=== PATIENT | male | born 1970 | race Caucasian/White ===

== ENCOUNTER 2016-07-22 18:13 | Emergency (ER) ==
[2016-07-22 18:23] VITALS: BP 127/73
[2016-07-22] MEDS ORDERED: NORCO-5 PO ONE (19:03)
[2016-07-22] MEDS ORDERED: FLEXERIL PO ONE (19:03)
--- NOTE | 2016-07-22 19:05 | PROVIDER DOCUMENTATION ---
HPI-Musculoskeletal Pain/Inj - GENERAL Chief Complaint: Rib Injury Stated Complaint: POSS BROKEN RIB Time Seen by Provider: 07/22/16 18:53 Source: patient - HX OF PRESENT ILLNESS-MUSKULOSKELTAL Nature of Presenting Problem: 46 y/o WM c/o left anterior rib pain. Patient states 4 days ago he was pushing a mower, pushed as hard as he could, hand slipped and it hit him in the left anterior ribs. He was dx with pneumonia on Monday, taking Azithromycin, states the coughing is making the pain worse. Taking otc medications for pain relief without help. Pain aching, nonradiating, worse with coughing and deep breath. Review of Systems - Adult - REVIEW OF SYSTEMS - ADULT Constitutional: reports: no symptoms reported. denies: chills, fever, fatique Eyes: reports: no symptoms reported. denies: blurred vision, double vision, eye pain Ears, Nose, Mouth & Throat: reports: no symptoms reported. denies: ear pain, nose pain, throat pain Cardiovascular: reports: no symptoms reported. denies: chest pain, palpitations Respiratory: reports: see HPI, cough, other (chest wall pain). denies: shortness of breath, wheezing Gastrointestinal: reports: no symptoms reported. denies: abdominal pain, diarrhea, nausea, vomiting Genitourinary: reports: no symptoms reported. denies: dysuria, discharge, frequency, incontinence Musculoskeletal: reports: see HPI, muscle aches. denies: bone pain, back pain Integumentary: reports: no symptoms reported. denies: rash Neurological: reports: no symptoms reported. denies: dizziness/vertigo, headache/migraines Psychiatric: reports: no symptoms reported Endocrine: reports: no symptoms reported Hematologic/Lymphatic: reports: no symptoms reported Allergic/Immunologic: reports: no symptoms reported All Other Systems: Reviewed and Negative Past History - Adult - PAST MEDICAL HISTORY-ADULT Review of Records: reports: Old Records Reviewed, Nursing Assessment Review, Medications Reviewed Major Childhood Illnesses: reports: denies history Cardiovascular: reports: denies history Respiratory: reports: denies history Gastrointestinal: reports: other (diverticulitis) Genitourinary: reports: denies history Musculoskeletal: reports: denies history Neurological: reports: denies history Endocrine/Immune: reports: denies history Other Conditions: reports: denies history - PRIOR SURGERIES/PROCEDURES Surgical/Procedure History: reports: other (ear drum repair) - IMMUNIZATION STATUS Childhood Immunizations: See Nurse Assessment Flu Vaccine: See Nurse Assessment - FAMILY HISTORY Family History: reviewed, not pertinent - SOCIAL HISTORY Smoking: denies Substance Use: none/never Alcohol Use Frequency: never Physical Exam-Injury Related - Physical Exam-Injury Related Initial Vital Signs Reviewed: Yes General Appearance: appears well, alert, no apparent distress Eyes: PERRL/EOMI, pink conjunctivae Head, Ears, Nose, Mouth & Throat: normocephalic/atraumatic, moist mucous membranes Neck: normal inspection Respiratory: chest non-tender, lungs clear, normal breath sounds, no pleuratic chest pain, no respiratory distress, no accessory muscle use. negative: respiratory distress, decreased breath sounds, accessory muscle use, crackles, rales, rhonchi, stridor, wheezing Cardiovascular: normal peripheral pulses, regular rate, rhythm Chest/Breast: tenderness (left andterior chest wall tenderness around the nipple area. No bruising noted) Integumentary: normal color, warm/dry Neurologic: grossly normal, no motor/sensory deficits Psych/Mental Status: normal mood/affect, normal thought content, normal thought process, oriented x 3 - Glascow Coma Score Best Eye Response (Carl): (4) open spontaneously Best Verbal Response (Carl): (5) oriented Best Motor Response ([place]): (6) obeys commands Progress - PLAN OF CARE/RESULTS Progress/Plan/Lab Results: Vital Signs Temp Pulse Resp BP Pulse Ox 07/22/16 18:21 97.8 F 101 H 18 127/73 100 No Known Allergies Allergy (Verified 03/05/15 20:01) Hydrocodone/APAP 7.5 mg/325 mg [[place]-7.5] 1 each PO Q6H PRN PRN #10 tablet 11/04 Ibuprofen [Motrin] 800 mg PO Q8H PRN PRN #20 tablet 11/25/15 Omeprazole [Prilosec] 20 mg PO DAILY@0700 #20 capsule 11/25/15 Cyclobenzaprine [Flexeril] 10 mg PO TID #20 tablet 07/22/16 Orders Category Date Time Status RIBS UNILAT W/PA CHEST LEFT [RAD] Stat Exams 07/22/16 18:21 Taken Cyclobenzaprine [Flexeril] Med 07/22/16 19:03 Discontinued 10 mg PO NOW ONE Hydrocodone/APAP 5 mg/325 mg [[place]-5] Med 07/22/16 19:03 Discontinued 1 each PO NOW ONE - XRAY 1 XRAY: Left XRAY Study: Chest, Ribs Impression: Normal (NAD per Dr. Story, ER prelim) Departure - Departure Time of Disposition Order: 19:04 DIAGNOSIS: Contusion of rib on left side Qualifiers: Encounter type: initial encounter Qualified Code(s): S20.212A - Contusion of left front wall of thorax, initial encounter Disposition: HOME 01 Certified Medical Emergency: Emergent Condition: Stable Additional Instructions: Follow up with your primary care physician ED Follow Up Instructions: You have been treated by a care provider in the Emergency Department. These instructions are being provided to you so you can have an understanding of how to care for yourself upon discharge. Upon discharge from the Emergency Department, you are responsible for making arrangements for follow-up care by a physician of your choice. Take all prescribed medications as directed. Return to the Emergency Department immediately for any new or worsening symptoms. You may call the Physician Referral phone number at [phone] to obtain a list of Physicians who are taking new patients. Prescriptions: Cyclobenzaprine [Flexeril] 10 mg PO TID #20 tablet Referrals: Jairo Frye MD [Primary Care Provider] - Attestation - Physician/ SEPIDEH Attestation Patient care was provided by Advanced Practice Provider:: Yes Advanced Practice Provider:: Diann Viramontes Advanced Practice Provider documentation review:: The Mid-level provider documentation, treatment plan and medical decision making was reviewed by the physician who agrees with all treatment and medical decision making by the MLP.
--- NOTE | 2016-07-23 09:07 | Diag Imaging Result Document ---
PROCEDURE NAME: RIBS UNILAT W/PA CHEST LEFT - 07/22/2016 LEFT RIBS AND PA CHEST, 5 VIEWS: COMPARISON: No comparison exam. FINDINGS: There is no left rib fracture identified. Heart size is normal. The lungs appear clear. There is no pleural effusion or pneumothorax seen. IMPRESSION: No evidence of acute disease.
== END 2016-07-22 19:30 | disposition home or self-care (01) ==
LOC: P.ED 18:13
DX: S20.212A Contusion of left front wall of thorax, initial encounter (principal); R07.81 Pleurodynia; R07.89 Other chest pain; M79.1 Myalgia; R05 Cough; W22.8XXA Striking against or struck by other objects, initial encounter; Z79.899 Other long term (current) drug therapy
CPT/HCPCS: 71101; 99282

== ENCOUNTER 2016-11-09 12:44 | Inpatient (IN) ==
[2016-11-09] MEDS ORDERED: ZOFRAN IV ONE (13:05)
[2016-11-09] MEDS ORDERED: NS 1,000 ML IV ONE (13:05)
[2016-11-09 14:18] LABS: MANUAL DIFF NEEDED? NO
[2016-11-09 14:25] LABS: HEMATOCRIT 43.1 % (42.0-52.0); HEMOGLOBIN 14.7 g/dL (14.0-18.0); IMM GRAN# 0.05 X1000 (0.0-0.04); IMM GRAN% 0.2 % (0.0-0.5); LYMPH# 3.07 X1000 (1.2-3.4); LYMPH% 14.9 % (20.5-51.1); MCH 29.9 PG (27-31); MCHC 34.1 g/dL (33-37); MCV 87.8 FL (81-99); MONO# 1.72 X1000 (0.11-0.59); MONO% 8.4 % (1.7-9.3); MPV 11.4 FL (7.4-10.4); NEUT% 76.5 % (42.2-75.2); PLT 248 X1000 (130-400); RBC 4.91 XMIL (4.7-6.1)
--- NOTE | 2016-11-09 14:31 | Diag Imaging Result Doc PS360 ---
EXAM: FLAT/UPRIGHT ABD/1 VIEW CHEST HISTORY: Abd pain TECHNIQUE: Two view abdomen. Single view chest. COMPARISON: 07/22/2016 FINDINGS: Supine and erect views of the abdomen reveal a nonobstructive bowel gas pattern. There is no organomegaly or mass effect. Single view of the chest reveals no infiltrate, effusion, or pneumothorax. There may be a granuloma right apex. There is no free air beneath the hemidiaphragm. There is mild constipation. IMPRESSION: No acute abnormalities are appreciated. Mild constipation. Electronically signed by Veronica Lott 11/09/2016 2:29 PM
[2016-11-09 14:38] LABS: AGAP 13; ALBUMIN 4.4 g/dL (3.5-5.0); ALKALINE PHOSPHATASE 59 U/L (32-122); AMYLASE 46 U/L (20-200); BUN 18 mg/dL (8-22); CALCIUM 9.1 mg/dL (8.8-10.2); CHLORIDE 101 mmol/L (98-107); COSMO 281; GOT 22 U/L (10-34); GPT 30 U/L (10-44); LIPASE 21 U/L (13-60); POTASSIUM 3.9 mmol/L (3.5-5.1); SODIUM 139 mmol/L (136-145); TCO2 25 mmol/L (25-35); TOTAL PROTEIN 7.1 g/dL (6.3-8.3)
[2016-11-09] MEDS ORDERED: MORPHINE IV ONE (14:55)
[2016-11-09] MEDS ORDERED: LEVAQUIN 750 MG/D5W 750 MG/150 ML IVPB IV ONE (15:19)
[2016-11-09] MEDS ORDERED: FLAGYL 500 MG/NS 500 MG/100 ML IVPB IV ONE (15:19)
[2016-11-09 15:24] LABS: BILIRUBIN URINE NEGATIVE (NEGATIVE); BLOOD URINE NEGATIVE (NEGATIVE); CLARITY CLEAR (CLEAR); COLOR YELLOW; GLUCOSE URINE NEGATIVE (NEGATIVE); LEUKOCYTES URINE 1+ (NEGATIVE); NITRITE URINE NEGATIVE (NEGATIVE); PH URINE 6.5; PROTEIN URINE TRACE mg/dL (NEGATIVE); UROBILINOGEN URINE NORMAL
[2016-11-09 15:27] LABS: UR AMPHETAMINES QUAL NONE DETECTED (NONE DETECT); UR BARBITUATES QUAL NONE DETECTED (NONE DETECT); UR BENZODIAZEPIN QUAL PRESUMPTIVE POSITIVE (NONE DETECT); UR COCAINE QUAL NONE DETECTED (NONE DETECT); UR MDMA QUAL NONE DETECTED (NONE DETECT); UR METHADONE QUAL NONE DETECTED (NONE DETECT)
[2016-11-09 15:28] LABS: UR CANNABINOIDS QUAL NONE DETECTED (NONE DETECT); UR METHAMPHETAMINE QUAL NONE DETECTED (NONE DETECT); UR OPIATES QUAL NONE DETECTED (NONE DETECT); UR OXYCODONE QUAL NONE DETECTED (NONE DETECT); UR PCP QUAL NONE DETECTED (NONE DETECT); UR TCA QUAL NONE DETECTED (NONE DETECT)
[2016-11-09 15:48] LABS: URINE EPITHELIAL CELLS <10 /HPF (<10); URINE RBC <10 /HPF (<10); URINE WBC <10 /HPF (<10)
[2016-11-09 15:49] LABS: URINE CAST NONE SEEN /LPF; URINE CRYSTAL NONE SEEN /HPF; URINE CULTURE PL NEEDED? YES; URINE SOURCE CLEAN CATCH
--- NOTE | 2016-11-09 16:00 | Diag Imaging Result Doc PS360 ---
EXAM: CT ABD/PELVIS W/ IV CONT ONLY HISTORY: LLQ pain, h/o diverticulitis TECHNIQUE: Imaging was were obtained from the lung bases to pubic symphysis following IV contrast. Dose reduction technique. Oral contrast was omitted as per ED physician request. COMPARISON: 03/05/2015 FINDINGS: There are multiple foci of free intraperitoneal air. This is believed to be secondary to perforated diverticulitis within the mid descending colon. Within the mid descending colon there is diverticulitis as well as inflammatory change and thickening of the lateral peritoneum and numerous foci of extraluminal gas. No free fluid or abscess is appreciated. The appendix appears normal. Multiple areas of increased attenuation throughout the mesenteric fat particularly along the vessels is noted consistent with mesenteritis. There are also multiple prominent mesenteric lymph nodes compatible with mesenteric adenitis. This is unchanged from prior. No retroperitoneal lymphadenopathy is identified. There is extensive diverticulosis sigmoid colon. No bowel distention to suggest obstruction. No focal abnormality about the solid visceral organs. There is a hiatal hernia. There are multiple bone islands about the pelvis and proximal femora as well as bridging osteophyte formation right SI joint. IMPRESSION: 1.Acute perforated descending diverticulitis with pneumoperitoneum. No abscess or free fluid. Dr. Meeks was notified verbally. 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 3.Normal appendix. Electronically signed by Veronica Lott 11/09/2016 3:57 PM
--- NOTE | 2016-11-09 16:01 | PROVIDER DOCUMENTATION ---
This chart was entered by Edith Bruno Scribe, acting as scribe for Guerline Meeks MD. HPI-Abdominal Pain/GI Problem - General Chief Complaint: Abdominal Pain Stated Complaint: SIDE PAIN Time Seen by Provider: 11/09/16 13:04 Source: patient Allergies/Adverse Reactions: Patient Allergies Allergy/AdvReac Type Severity Reaction Status Date / Time No Known Allergies Allergy Verified 03/05/15 20:01 Home Medications: Home Medication List Medication Instructions Recorded Confirmed Last Taken Type Hydrocodone/APAP 7.5 mg/325 mg 1 each PO Q6H PRN PRN #10 tablet 11/25/15 Unknown Rx [[place]-7.5] Ibuprofen [Motrin] 800 mg PO Q8H PRN PRN #20 tablet 11/25/15 Unknown Rx Omeprazole [Prilosec] 20 mg PO DAILY@0700 #20 capsule 11/25/15 Unknown Rx Cyclobenzaprine [Flexeril] 10 mg PO TID #20 tablet 07/22/16 Unknown Rx - History of Present Illness-ABD Nature of Presenting Problems: Pt is 46 y/o M presents to the ED with LUQ and LLQ pain. Pt states pain started this afternoon after eat. Pt denies N/V/D. Abdominal Pain Onset Location: reports: LUQ, LLQ Pain Radiation: reports: no radiation Quality of Pain: reports: aching Severity in ED: reports: mild Onset/Duration: reports: this afternoon (1130) Timing: reports: still present, improving Activities at Onset: reports: light activity Modifying Factors: improves with: nothing Associated Symptoms: reports: denies symptoms Last BM: unsure Dark Stools Present?: reports: none noticed Rectal Bleeding: reports: none Rectal Pain: reports: none Emesis Description: reports: none Bruising or Bleeding Gums?: No Similar Symptoms Previously?: No Recently seen or treated by another doctor?: No Review of Systems - Adult - REVIEW OF SYSTEMS - ADULT Constitutional: reports: no symptoms reported Eyes: reports: no symptoms reported Ears, Nose, Mouth & Throat: reports: no symptoms reported Cardiovascular: reports: no symptoms reported Respiratory: reports: no symptoms reported Gastrointestinal: reports: abdominal pain (LUQ and LLQ). denies: diarrhea, nausea, vomiting Genitourinary: reports: no symptoms reported Musculoskeletal: reports: no symptoms reported Integumentary: reports: no symptoms reported Neurological: reports: no symptoms reported Psychiatric: reports: no symptoms reported Endocrine: reports: no symptoms reported Hematologic/Lymphatic: reports: no symptoms reported Allergic/Immunologic: reports: no symptoms reported All Other Systems: Reviewed and Negative Past History - Adult - PAST MEDICAL HISTORY-ADULT Review of Records: reports: Nursing Assessment Review, Medications Reviewed, Social history reviewed & non-contributory. Major Childhood Illnesses: reports: denies history Cardiovascular: reports: denies history Respiratory: reports: denies history Gastrointestinal: reports: other (diverticulitis) Obstetrical/Gynecological: reports: denies history Genitourinary: reports: denies history Musculoskeletal: reports: denies history Neurological: reports: denies history Endocrine/Immune: reports: denies history Other Conditions: reports: denies history - PRIOR SURGERIES/PROCEDURES Surgical/Procedure History: reports: other (ear drum repair) - IMMUNIZATION STATUS Childhood Immunizations: See Nurse Assessment Flu Vaccine: See Nurse Assessment - FAMILY HISTORY Family History: reviewed, not pertinent - SOCIAL HISTORY Smoking: less than 1 pack/day, other (dip) Provider spent 3-5 mins advising pt. on dangers of tobacco.: Discussed manners to quit use, and f/u contacts for add'l counseling. Substance Use: alcohol Alcohol Use Frequency: rarely Living Situation: family Physical Exam-General - PHYSICAL EXAM-ADULT Initial Vital Signs Reviewed: Yes - CONSTITUTIONAL General Appearance: appears well, alert, no apparent distress - EYES Eyes: PERRL/EOMI, pink conjunctivae - HEAD, EARS, NOSE, MOUTH & THROAT HENMT: normocephalic/atraumatic, moist mucous membranes, normal ENT inspection - NECK Neck: non-tender, full range of motion, supple, normal inspection - RESPIRATORY Respiratory: chest non-tender, lungs clear, normal breath sounds - CARDIOVASCULAR Cardiovascular: normal peripheral pulses, regular rate, rhythm - GASTROINTESTINAL (ABDOMEN) Abdominal Exam: normal bowel sounds, non tender, soft - LYMPHATIC Lymphatic: no adenopathy - MUSCULOSKELETAL Back Exam: normal inspection, no CVA tenderness, no vertebral tenderness Extremity: normal range of motion, non-tender, normal gait, normal inspection - SKIN Integumentary: normal color, normal turgor, warm/dry - NEUROLOGIC Neurologic: grossly normal - PSYCHIATRIC Psych/Mental Status: normal mood/affect, oriented x 3 Progress - PLAN OF CARE/RESULTS Progress/Plan/Lab Results: Vital Signs - 8 hr 11/09/16 12:53 Temperature 98.4 F Pulse Rate 76 Respiratory Rate 18 Blood Pressure 130/70 O2 Sat by Pulse Oximetry 97 Orders Category Date Time Status Saline Loc DIRECTED Care 11/09/16 12:58 Active NPO Diet 11/09/16 12:58 Active FLAT/UPRIGHT ABD/1 VIEW CHEST [RAD] Stat Exams 11/09/16 13:05 Taken AMYLASE [CHEM] Stat Lab 11/09/16 12:58 Ordered CBC WITH ELECTRONIC DIFF [HEME] Stat Lab 11/09/16 12:58 Ordered COMPREHENSIVE METABOLIC PANEL [CHEM] Stat Lab 11/09/16 12:58 Ordered D-DIMER PL [COAG] Stat Lab 11/09/16 13:05 Ordered LIPASE [CHEM] Stat Lab 11/09/16 12:58 Ordered UDS [URINE DRUG SCREEN PL] Stat Lab 11/09/16 13:[address] W/POSS RFLX CULT [URINALYSIS] Stat Lab 11/09/16 13:00 Ordered 0.9% Sodium Chloride Inj [Ns] 1,000 ml Med 11/09/16 13:05 Active IV 999 mls/hr Ondansetron [Zofran] Med 11/09/16 13:05 Discontinued 4 mg IV NOW ONE Result Diagrams: 11/09/16 13:55 11/09/16 13:55 - XRAY 1 XRAY Study: Chest, Abdomen Impression: Abnormal XRAY Interpretation: no acute abnormalities are appreciated. mild constipation - CT/MRI 1 CT Study: Abdomen, Pelvis Impression: Abnormal CT Results: perforation of L colon due to diverticulitis per radiology. - CONSULTS/PCP/HOSPITALIST Notification #1 *Consult/PCP/Hospitalist*: Dr. Frye/Dr. Laverne Hernandez Time Discussed: 15:51 Reason/Comments: Dr. Meeks consulted with Dr. Winn about Pt Consult Disposition: Admit (Admit to [facility]), other (consult with Dr. Hernandez and Dr. Frye.) #2 Consult: Dr. Hernandez Time Discussed: 15:54 Reason/Comments: Dr. Meeks consulted with Dr. Hernandez about Pt Departure - Departure Date of Disposition Decision: 11/09/16 Time of Disposition Decision: 15:21 DIAGNOSIS: Diverticulitis, Perforation of colon Disposition: ADMITTED INPATIENT 09 Certified Medical Emergency: Emergent Condition: Stable Referrals and Follow-Ups: Jairo Frye MD [Primary Care Provider] - - Critical Care Note This patient required my direct & personal management of CC.: Yes Total Time (mins): 50 Critical Care Statement: This patient required my direct personal management to treat or rule out processes, the absence of which, could potentiallly result in sudden, clinically significant life or limb threatening deterioration. This chart was documented by the indicated scribe, (Edith Bruno Scribe) and accurately reflects the services I performed and decisions made by me, Guerline Meeks MD, as attested by the provider's signature.
--- NOTE | 2016-11-09 19:45 | HISTORY AND PHYSICAL ---
PRIMARY CARE PHYSICIAN: Jairo Frye MD CHIEF COMPLAINT: Abdominal pain with history of perforated diverticulitis. HISTORY OF PRESENT ILLNESS: Mr. Younger is a 46-year-old, male well known to myself with a history approximately 18 years ago of diverticulitis perforated and chronic diverticulitis with concerns for Crohn's disease, seen in my clinic 1 day prior with persistent left lower quadrant pain, left upper quadrant pain nonresponsive to Xifaxan and then further Cipro Flagyl. The patient denies any rectal bleeding. Denies any blood in stool. States that he is not having current nausea, vomiting, diarrhea, but upon evaluation in the emergency room was noted to have a very impressive CT noting a perforated diverticulum. At that time, I was notified, along with the surgeon extruder operator horizontal, and evaluation is underway. REVIEW OF SYSTEMS: Twelve point review of systems pertinent for items mentioned in HPI. Patient denies chest pain, diarrhea, nausea, vomiting, fevers or chills at this time. ALLERGIES: No known drug allergies. MEDICATIONS: Hydrocodone, omeprazole, ibuprofen, cyclobenzaprine. The patient has been taking Cipro and Flagyl. PAST MEDICAL HISTORY: Consistent with diverticulitis. SOCIAL HISTORY: The patient is a current tobacco user, noting daily. Currently with children that are grown. Denies any alcohol use. PHYSICAL EXAMINATION: VITAL SIGNS: Temperature 98.4 degrees, pulse 76, respiration 18, blood pressure 130/70, O2 saturation 97% on room air. GENERAL: Appeared well in no apparent distress. Pupils equal, round, reactive to light and accommodation. HEENT: Normocephalic, atraumatic. NECK: Nontender, full range of motion. Normal inspection. CHEST: Clear to auscultation. Normal pulses. Regular rate and rhythm. GI: Shows a left upper and left lower quadrant tenderness, worse in the left lower quadrant. No rebounding and no guarding. Bowel sounds are hyperactive in the left lower quadrant; otherwise, within normal limits. MUSCULOSKELETAL: No CVA tenderness. No abnormal range of motion. Normal gait. SKIN: Normal turgor. Warm and dry. LABORATORY/IMAGING: Demonstrate a WBC of 20,000 with an hemoglobin and hematocrit 14 and 43, respectively. Platelet count 248,000. Neutrophils 76.5. D-dimer 0.36, chemistry within normal limits. Glucose 124, protein and WBCs in the urine and positive benzodiazepine, likely due to the taking of the Librax. Microbiology, urine culture pending. Report CT abdomen pelvis performed 11/09/2016 shows acute perforated descending diverticulitis with pneumoperitoneum, no abscess no free fluid. Mesenteric adenitis and mesenteritis, unchanged, with a normal-appearing appendix. ASSESSMENT/PLAN: A 46-year-old, white male with: 1. Acute perforated the descending diverticulitis. 2. Fibular peritoneum. 3. Leukocytosis. Surgery consulted regarding the case. We are going to do supportive measures, transfer patient to the floor. IV fluid resuscitation. Rechecking of labs in a.m. and making patient currently nothing per oral. Due to patient's current use of antibiotics, we will use a broad-spectrum with Zosyn and maintain a daily followup to ensure resolution of the condition. If necessary, patient will likely undergo a surgery that will likely be elected instead of emergent, as risks are further evaluated per Surgery. We will followup patient daily. cc: Jairo Frye MD
[2016-11-09] MEDS: ZOSYN 3.375 GM/NS 3.375 GM/50 ML IVPB IV SCH (21:35)
[2016-11-09] MEDS: NS 1,000 ML IV SCH (21:35)
[2016-11-09] MEDS: PHENERGAN IV PRN (21:47)
[2016-11-09] MEDS: SODIUM CHLORIDE 0.9% INJ PRN (21:47)
[2016-11-09] MEDS: PROTONIX IV SCH (22:47)
[2016-11-10] MEDS: ZOSYN 3.375 GM/NS 3.375 GM/50 ML IVPB IV SCH ×4 (03:35→21:32)
[2016-11-10] MEDS: PHENERGAN IV PRN ×3 (03:35→16:10)
[2016-11-10] MEDS: SODIUM CHLORIDE 0.9% INJ PRN (03:36)
--- NOTE | 2016-11-10 05:15 | CONSULTATION ---
DATE OF CONSULTATION: 11/09/2016 HISTORY OF PRESENT ILLNESS: This is a 46-year-old male with a history of perforated diverticulitis who apparently had free air and subcutaneous air 14 years ago. He was treated nonoperatively and recovered. He had several episodes of milder diverticulitis over the years, treated with p.o. antibiotics by Dr. Frye. He had colonoscopies 9 years ago and 3 years ago that have shown extensive diverticulosis but no neoplastic processes. Most recently, [address] Wallace. He developed kind of smoldering abdominal pain in the left lower quadrant in the last couple of days. He has been started on Cipro, Flagyl, and another new antibiotic that I unfamiliar with but was also started yesterday on a steroid taper. Worsening pain today prompted his ER visit. His family is planning on a trip out of town and hope to settle this. CT scan obtained in the emergency department showed some free air, no free fluid, and stranding around the colon, extensive diverticulosis. He has been hemodynamically stable with no tachycardia or fevers noted in the emergency department. PAST MEDICAL HISTORY: Recurrent diverticulitis. PAST SURGICAL HISTORY: Negative. SOCIAL HISTORY: Uses smokeless tobacco and occasional cigars but not a regular smoker. Occasional alcohol. Works at [employer]. FAMILY HISTORY: Unknown. He is adopted. REVIEW OF SYSTEMS: Ten point negative other than what is mentioned in his HPI. PHYSICAL EXAMINATION: Vital Signs: Temperature is 97.8 degrees, pulse 81, blood pressure 111/74, oxygen saturation 98% on room air. He is 6 feet, 190 pounds. General: He is alert, in no acute distress. HEENT: There is no scleral icterus. There are no cervical masses or lymphadenopathy. Cardiovascular: Normal rate, regular rhythm. Pulmonary: He is on room air with no increased work of breathing. Abdomen: Soft. There is no rigidity or guarding. There is some focal tenderness in the left side of his abdomen but nothing on the right. There is no guarding. He is moving easily without any signs of peritonitis. Integumentary: Otherwise warm and dry without jaundice. Extremities: No lower extremity edema. Upper extremities are well perfused. Good muscle tone throughout. LABS: White count is 20, hematocrit is 43, platelets are 248,000. Creatinine is 0.9, glucose 124. LFTs are normal. Lipase 21. Urinalysis, 1+ white blood cells but otherwise unrevealing. UDS positive for benzodiazepines. CT scan of the abdomen and pelvis shows descending colon acute diverticulitis with evidence of perforation and pneumoperitoneum. That is no abscess or free fluid. There is some mesenteric adenitis. Normal appearing appendix. ASSESSMENT AND PLAN: This is a 46-year-old male with a history of recurrent diverticulitis. He has some small areas of free air. I do not see any free fluid. His exam is very benign which is expected for acute diverticulitis without diffuse peritonitis. He is focally tender in the left lower quadrant and is very soft throughout. He is moving well. Hemodynamically , he is stable. A long discussion with the patient regarding his clinical condition. I have recommended nonoperative management at this point, understanding that he has had a dose of steroids yesterday and that this could mask his clinical exam. I think in this otherwise healthy gentleman with stable vital signs that this is unlikely the case and we will continue to treat him nonoperatively with intravenous antibiotics and close observation. If he fails to progress over the next 24 hours or if his condition worsens at all, he develops tachycardia, a change in his exam, or worsening white count, he will need a colectomy with end colostomy. We discussed this matter. I have also recommended that he, at this point, given his recurrent nature and now the 2nd episode with free air, he undergo an elective sigmoid colectomy or descending colectomy after this episode has resolved and after he has had a repeat colonoscopy in 6 weeks or so, depending on his clinical condition. Dr. Frye is at the bedside. We will continue on intravenous Zosyn , strict bowel rest for the next couple of days. We will continue to follow his white count and fevers. I would not recommend continuing any steroids. He has only had a dose, it sounds like. Continue to follow along. Strict nothing per oral, intravenous fluids. We will continue to follow the patient for any deterioration in exam. We will plan to proceed emergently to the operating room for his colectomy with end colostomy. cc: MD Jairo Rice MD [facility]
[2016-11-10 06:42] LABS: EOS# 0.01 X1000 (0.0-0.7); HEMATOCRIT 42.1 % (42.0-52.0); HEMOGLOBIN 14.2 g/dL (14.0-18.0); IMM GRAN# 0.05 X1000 (0.0-0.04); IMM GRAN% 0.2 % (0.0-0.5); LYMPH# 4.75 X1000 (1.2-3.4); LYMPH% 23.6 % (20.5-51.1); MANUAL DIFF NEEDED? YES; MCH 30.1 PG (27-31); MCHC 33.7 g/dL (33-37); MCV 89.4 FL (81-99); MONO# 2.09 X1000 (0.11-0.59); MONO% 10.4 % (1.7-9.3); MPV 11.7 FL (7.4-10.4); NEUT% 65.8 % (42.2-75.2); PLT 213 X1000 (130-400); RBC 4.71 XMIL (4.7-6.1)
[2016-11-10 07:02] LABS: AGAP 12; ALBUMIN 3.8 g/dL (3.5-5.0); ALKALINE PHOSPHATASE 54 U/L (32-122); BUN 12 mg/dL (8-22); CALCIUM 8.8 mg/dL (8.8-10.2); CHLORIDE 103 mmol/L (98-107); COSMO 281; GOT 16 U/L (10-34); GPT 24 U/L (10-44); MAGNESIUM 1.9 mg/dL (1.5-2.7); POTASSIUM 3.9 mmol/L (3.5-5.1); SODIUM 141 mmol/L (136-145); TCO2 26 mmol/L (25-35); TOTAL BILIRUBIN 1.03 mg/dL (0.20-1.00); TOTAL PROTEIN 6.5 g/dL (6.3-8.3)
[2016-11-10 07:49] LABS: LYMPHS 18 % (21-51); MONO 14 % (1-9)
--- NOTE | 2016-11-10 08:10 | PROGRESS NOTE ---
DATE: 11/10/2016 SUBJECTIVE: Overnight, no major issues or concerns noted. The patient rested well utilizing Phenergan for both pain and nausea control. Slight fever noted and discussed continuation of Zofran provided. OBJECTIVE: Vital Signs: Temperature 99.8 degrees, pulse 84, respirations 18, blood pressure 110/54, O2 saturation 96% on room air. PHYSICAL EXAMINATION: Well-developed, well-nourished male in no acute distress. Slight pallor noted. CV: Regular rate. Lungs are clear to auscultation. No rhonchi noted. Abdomen is soft, hyperactive bowel sounds in the lower quadrants bilaterally. Left upper and lower quadrants still operator to deep palpation. No guarding or rebound noted on today's evaluation. LABORATORY DATA: Labs show a WBC primarily the same from 20.5 to 20.16. Neutrophils did drop from 76 to 65. Lymphocytes remain within normal limits. CMP is well within normal limits with total bilirubin slightly high at 1.03. TSH 2.66. Microbiology shows urine culture that is pending. ASSESSMENT AND PLAN: A 46-year-old male with a history of perforated diverticulitis approximately 18 years ago. Presents with a recurrent perforation and some small areas of free air. 1. Acute perforated descending diverticulitis. 2. Leukocytosis. 3. Pneumoperitoneum. 4. Hypothyroidism. The patient is maintained n.p.o. Recurrent surgical evaluations will be performed daily with imaging likely later today versus tomorrow to follow. Leukocytes are the same. Steroids have been held, and Zosyn is being used at this time. The patient is being held n.p.o. No overt changes. Mild febrile status is of slight concern at this time but the patient will continue to be monitored and follow changes for elective colectomy if the situation is not clearing. We will continue to follow daily and monitor the labs in the a.m. cc: Jairo Frye MD
[2016-11-10] MEDS ORDERED: SODIUM BENZOATE IV PRN (08:44)
[2016-11-10] MEDS ORDERED: CAFFEINE IV PRN (08:44)
[2016-11-10] MEDS: NS 1,000 ML IV SCH ×3 (09:25→17:57)
[2016-11-10] MEDS: DILAUDID IV PRN ×3 (10:04→20:17)
[2016-11-10] MEDS: SODIUM CHLORIDE 0.9% INJ SCH ×3 (10:05→17:16)
--- NOTE | 2016-11-10 10:30 | PROGRESS NOTE ---
DATE: 11/10/2016 SUBJECTIVE: Feels well. Pain is improving. No nausea or vomiting. OBJECTIVE: Vital Signs: No fevers overnight. Temperature is 99.7 degrees this morning. Pulse 82, blood pressure 98/53, oxygen saturation 96% on room air. General: He is alert, in no acute distress. Abdomen: Soft. Mild tenderness on the left side but no diffuse peritonitis. No pain on the right side of his abdomen. He is nondistended. Labs: White count is stable at 20, hematocrit is down to 42, platelets 213,000. Creatinine is 1, glucose is 98. ASSESSMENT AND PLAN: This is a 46-year-old male who presents with evidence of perforated diverticulitis. I do not see any signs of peritonitis. He has been hemodynamically stable. His exam seemed relatively benign with only focal left side tenderness this morning. We will continue to monitor him. Broad-spectrum antibiotics. Bowel rest. If he worsens, he will need an operation which would include end-colostomy. I have discussed with the patient and he understands. He still appears hemoconcentrated on his labs this morning, hematocrit being 42 with persistence of his leukocytosis. Given his decreased oral intake, I suspect that he may be a little dehydrated and would benefit from increasing his fluids to at least 125 mL an hour of crystalloid solution. We will continue to follow along. cc: MD Jairo Rice MD
[2016-11-10] MEDS: PROTONIX IV SCH (17:16)
[2016-11-10] MEDS: OFIRMEV 1000 MG/ISOTONIC SOLN 1,000 MG/100 ML BOTTLE IV PRN (20:20)
[2016-11-11] MEDS: SODIUM CHLORIDE 0.9% INJ PRN ×2 (01:28→22:47)
[2016-11-11] MEDS: DILAUDID IV PRN ×7 (01:28→22:47)
[2016-11-11] MEDS: PHENERGAN IV PRN ×3 (01:28→22:47)
[2016-11-11] MEDS: NS 1,000 ML IV SCH (01:56)
[2016-11-11] MEDS: ZOSYN 3.375 GM/NS 3.375 GM/50 ML IVPB IV SCH ×4 (03:04→22:14)
[2016-11-11] MEDS: OFIRMEV 1000 MG/ISOTONIC SOLN 1,000 MG/100 ML BOTTLE IV PRN ×3 (05:40→19:37)
[2016-11-11 06:01] LABS: MANUAL DIFF NEEDED? NO
[2016-11-11 06:31] LABS: BASO% 0.1 % (0.0-0.8); EOS# 0.03 X1000 (0.0-0.7); EOS% 0.2 % (0.0-10.0); HEMATOCRIT 44.6 % (42.0-52.0); HEMOGLOBIN 14.9 g/dL (14.0-18.0); IMM GRAN# 0.05 X1000 (0.0-0.04); IMM GRAN% 0.3 % (0.0-0.5); LYMPH# 2.72 X1000 (1.2-3.4); LYMPH% 16.4 % (20.5-51.1); MCH 29.9 PG (27-31); MCHC 33.4 g/dL (33-37); MCV 89.6 FL (81-99); MONO# 2.18 X1000 (0.11-0.59); MONO% 13.1 % (1.7-9.3); MPV 11.4 FL (7.4-10.4); NEUT% 69.9 % (42.2-75.2); PLT 211 X1000 (130-400); RBC 4.98 XMIL (4.7-6.1)
[2016-11-11] MEDS ORDERED: NS 500 ML IV ONE (06:39)
[2016-11-11 06:46] LABS: AGAP 19; ALBUMIN 3.6 g/dL (3.5-5.0); ALKALINE PHOSPHATASE 54 U/L (32-122); BUN 12 mg/dL (8-22); CALCIUM 8.6 mg/dL (8.8-10.2); CHLORIDE 100 mmol/L (98-107); COSMO 277; GOT 12 U/L (10-34); GPT 20 U/L (10-44); POTASSIUM 3.8 mmol/L (3.5-5.1); SODIUM 139 mmol/L (136-145); TCO2 20 mmol/L (25-35); TOTAL BILIRUBIN 1.24 mg/dL (0.20-1.00); TOTAL PROTEIN 5.9 g/dL (6.3-8.3)
[2016-11-11] MEDS: CLINIMIX E 4.25%-5% SOLUTION 1,000 ML IV SCH ×3 (09:28→22:14)
--- NOTE | 2016-11-11 11:31 | PROGRESS NOTE ---
DATE: 11/11/2016 SUBJECTIVE: Overnight, patient having persistent temperatures and noted to have poor pain control. Dilaudid was added along with 2 doses of caffeine for what is likely a caffeine- withdrawal headache. The patient responded minimally. We will follow with the increased frequency of the Dilaudid dose as necessary. OBJECTIVE: Vital Signs: Temperature 98.6 degrees, pulse 98, respirations 18, blood pressure 100/67. O2 saturation 97% on room air. I's and O's show low urine output. PHYSICAL EXAMINATION: HEENT: The pupils are round and reactive to light. Extraocular movements are intact. OP is dry. Neck is supple. No JVD noted. Chest is clear to auscultation anteriorly. No rhonchi. No wheeze. Abdomen is soft, tender left lower quadrant. No major changes over prior exam. Extremities: There is no cyanosis, clubbing, or edema noted in the lower extremities. LABORATORY DATA: WBC is 16.61 with an hemoglobin and hematocrit stable. Platelet count is 211,000. Neutrophils down to 69.9. Slight increase in monocytosis. CMP is pending today. Labs consistent with mild dehydration. Microbiology: Urine culture no growth to date. ASSESSMENT AND PLAN: A 46-year-old male with a history of perforated diverticulitis in the past with 1. Acute perforated descending diverticulitis. 2. Leukocytosis. 3. Pneumoperitoneum. 4. Hypothyroidism. 5. Hypovolemia. We will continue the n.p.o. status, increase the IV fluid with a 500 mL bolus and slight increase in the overall rate, maintain that the pain medication regimen with Phenergan Antibiotics are showing a good effect, and the patient is not worsening. We will continue to follow with the considerations per surgery regarding what considerations are to be made regarding. Plans discussed with Surgery the need for imaging today to further evaluate, and we will perform that as necessary. 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 cc: Jairo Frye MD
--- NOTE | 2016-11-11 13:13 | Diag Imaging Result Doc PS360 ---
ABDOMEN/PELVIS W/WO CONTRAST - 11/11/2016 INDICATION: Perforated diverticulum TECHNIQUE: A CT dose reduction protocol was used. COMPARISON: 11/09/2016 FINDINGS: On the noncontrast exam, there are no abnormal calcifications. On the contrast enhanced exam, there is extensive peritoneal free air similar to prior. There is some inflammation surrounding diverticula at the proximal descending colon compatible with diverticulitis. This is slightly more inflamed on the present study. There is increasing patchy atelectasis in both lower lobes. There is a trace left pleural effusion. No obvious solid abdominal organs are grossly normal. Stable patchy mesenteric edema. Urinary bladder, prostate, and rectum are normal. There are moderate degenerative changes of the spine. No acute or suspicious bony lesion. IMPRESSION: 1. Slightly increasing inflammation about the splenic flexure of the colon compatible with perforated splenic diverticulitis. This is already a known problem to the clinician. 2. Increasing patchy bibasilar atelectasis. Trace left pleural effusion. Electronically signed by Pranav Hopper 11/11/2016 1:11 PM
--- NOTE | 2016-11-11 16:38 | PROGRESS NOTE ---
DATE: 11/11/2016 SUBJECTIVE: He feels better. Pain is almost resolved this morning. No nausea or vomiting. OBJECTIVE: Vital Signs: Temperature was 98 degrees, pulse 78, blood pressure 108/71, and O2 saturation 95% on room air. He had a mild increase in his heart rate to the low 90s. Abdomen: Soft. There is only mild tenderness in the left upper quadrant. No diffuse peritonitis. Nondistended. LABORATORY DATA: White count is down to 16, hematocrit 44, platelets 211,000. Creatinine is 1. Glucose is 87. ASSESSMENT AND PLAN: This is a 46-year-old male with perforated diverticulitis. Clinically, he is gradually improving. White count downtrending. Low grade temperature of 100 degrees, but nothing higher than that. He appears to be a little dry. His heart rate is up a little bit. Dr. Frye has given him some fluid bolus this morning. I agree with this. They even need to increase his maintenance rate, as I suspect he was somewhat dehydrated coming into this. We will continue bowel rest today with intravenous antibiotics with Zosyn. His exam continues to improve and remain benign. His white count is downtrending. We will hold off on surgical therapy at this point, electing more for an elective colectomy in the future with the hopes of avoiding colostomy. I have discussed this plan with the patient. He understands and agrees. cc: MD Jairo Rice MD
[2016-11-11] MEDS: SODIUM CHLORIDE 0.9% INJ SCH ×2 (17:51→19:49)
[2016-11-11] MEDS: PROTONIX IV SCH (19:49)
[2016-11-12] MEDS: DILAUDID IV PRN ×4 (01:33→23:05)
[2016-11-12] MEDS: OFIRMEV 1000 MG/ISOTONIC SOLN 1,000 MG/100 ML BOTTLE IV PRN ×2 (01:33→08:13)
[2016-11-12] MEDS: ZOSYN 3.375 GM/NS 3.375 GM/50 ML IVPB IV SCH ×3 (03:19→19:38)
[2016-11-12] MEDS: SODIUM CHLORIDE 0.9% INJ PRN ×2 (04:46→23:05)
[2016-11-12] MEDS: PHENERGAN IV PRN ×2 (04:46→23:05)
[2016-11-12 06:13] LABS: MANUAL DIFF NEEDED? NO
[2016-11-12 06:19] LABS: BASO% 0.1 % (0.0-0.8); EOS# 0.14 X1000 (0.0-0.7); EOS% 0.9 % (0.0-10.0); HEMOGLOBIN 14.5 g/dL (14.0-18.0); IMM GRAN# 0.04 X1000 (0.0-0.04); IMM GRAN% 0.3 % (0.0-0.5); LYMPH# 2.74 X1000 (1.2-3.4); LYMPH% 17.7 % (20.5-51.1); MCHC 33.7 g/dL (33-37); MONO# 1.79 X1000 (0.11-0.59); MONO% 11.6 % (1.7-9.3); MPV 11.1 FL (7.4-10.4); NEUT% 69.4 % (42.2-75.2); PLT 212 X1000 (130-400); RBC 4.83 XMIL (4.7-6.1)
[2016-11-12 06:39] LABS: AGAP 12; ALBUMIN 3.2 g/dL (3.5-5.0); ALKALINE PHOSPHATASE 54 U/L (32-122); BUN 16 mg/dL (8-22); CALCIUM 8.7 mg/dL (8.8-10.2); CHLORIDE 100 mmol/L (98-107); COSMO 276; GOT 12 U/L (10-34); GPT 14 U/L (10-44); MAGNESIUM 2.3 mg/dL (1.5-2.7); POTASSIUM 3.6 mmol/L (3.5-5.1); SODIUM 137 mmol/L (136-145); TCO2 25 mmol/L (25-35); TOTAL BILIRUBIN 0.68 mg/dL (0.20-1.00); TOTAL PROTEIN 6.7 g/dL (6.3-8.3)
[2016-11-12 06:43] LABS: AMYLASE 40 U/L (20-200); LIPASE 24 U/L (13-60)
--- NOTE | 2016-11-12 08:19 | PROGRESS NOTE ---
DATE: 11/12/2016 SUBJECTIVE: Feels okay. Pain for the most part resolved. OBJECTIVE: T-max overnight was 100.2. Temperature is 98.5, pulse has been in the 70s. Blood pressure 100/62. Oxygen saturation 95% on room air. General: He is alert in no acute distress. Cardiovascular: Normal rate, regular rhythm. Abdomen is soft, nontender at this point. Nondistended. No peritonitis. LABORATORY DATA: White count is down to 15, hematocrit 43. Creatinine 0.9, glucose is 122. ASSESSMENT AND PLAN: This is a 46-year-old male with perforated diverticulitis. His exam is improved. His white count continues down trending. His CT yesterday showed some persistent air, but this is improving. It appears to have originated from the splenic flexure of his colon. We will continue to follow along and treating him conservatively. We will start some sips of liquids today and, as his white count continues to come down, we will gradually advance his diet. cc: MD Jairo Rice MD
[2016-11-12] MEDS ORDERED: ULTRAM PO PRN (09:33)
--- NOTE | 2016-11-12 11:19 | PROGRESS NOTE ---
DATE: 11/12/2016 OBJECTIVE: Vital Signs: Stable with temperature 98.8 degrees, rate 89, respirations 17, blood pressure 103/60. O2 saturation on room air 94%. General: Patient complains with moderate frontal headache this morning. Abdomen is better and discomfort has improved. CT of his abdomen yesterday revealed persistent inflammation at the splenic flexure of the colon, but improving. There was patchy basilar atelectasis. He had trace left pleural effusion. He was seen by Dr. Hernandez this morning, who feels he is improving and recommended continuing conservative treatment. He was placed on some ice chips. Diet will be slowly increased as he continues to improve. LABORATORY DATA: White blood count this morning is 15,500, with 69% neutrophils. This is down from 20,500 on 11/09. PLAN: Continue intravenous antibiotics with Zosyn. He is on Dilaudid p.r.n. pain. cc: MD Jairo Razo MD
[2016-11-12] MEDS: CLINIMIX E 4.25%-5% SOLUTION 1,000 ML IV SCH ×2 (13:30→19:38)
[2016-11-12] MEDS: SODIUM CHLORIDE 0.9% INJ SCH (19:38)
[2016-11-12] MEDS: PROTONIX IV SCH (19:38)
[2016-11-13] MEDS: ZOSYN 3.375 GM/NS 3.375 GM/50 ML IVPB IV SCH ×4 (01:11→20:11)
[2016-11-13] MEDS: DILAUDID IV PRN ×3 (04:18→22:07)
[2016-11-13] MEDS: CLINIMIX E 4.25%-5% SOLUTION 1,000 ML IV SCH ×3 (04:20→22:25)
--- NOTE | 2016-11-13 09:09 | PROGRESS NOTE ---
DATE: 11/13/2016 VITAL SIGNS: Stable with temperature 98.4 degrees, heart rate 79, respirations 18, blood pressure 106/68, O2 saturation on room air of 97%. ASSESSMENT AND PLAN: Abdominal pain is much improved. He was able to tolerate clear liquids last night. Diet is advanced to soft GI. CBC will be rechecked tomorrow morning. Ambulation will be allowed as tolerated. cc: MD Jairo Razo MD
--- NOTE | 2016-11-13 09:48 | PROGRESS NOTE ---
DATE: 11/13/2016 SUBJECTIVE: He is feeling a lot better. No real abdominal pain. No nausea or vomiting. He is having bowel function. He really wants to go home. OBJECTIVE: Vital Signs: No fevers overnight. No tachycardia. General: He is alert, in no acute distress. Cardiovascular: Normal rate. Regular rhythm. Pulmonary: He is breathing comfortably on room air. Abdomen: Soft, nontender, nondistended. No peritonitis. Integumentary: Otherwise warm and dry. Extremities: There is no lower extremity edema. Laboratory Data: White count is pending this morning. ASSESSMENT AND PLAN: A 46-year-old male with a perforated diverticulitis that is improving with nonoperative management. We will continue his intravenous antibiotics today, pending his white count. We will make a determination when he goes home. If it normalizes, we will plan to send him home with a 10 day course of oral antibiotics. Meantime, we will give him a soft diet today. I have encouraged him to go slow and if any pain recurs that he will make himself nothing per oral. We will continue to follow along. cc: MD Jairo Rice MD
[2016-11-13] MEDS: SODIUM CHLORIDE 0.9% INJ PRN ×2 (14:14→22:07)
[2016-11-13] MEDS: PHENERGAN IV PRN ×2 (14:14→22:07)
[2016-11-13] MEDS: PROTONIX IV SCH (20:12)
[2016-11-14] MEDS: DILAUDID IV PRN (02:12)
[2016-11-14] MEDS: ZOSYN 3.375 GM/NS 3.375 GM/50 ML IVPB IV SCH ×2 (02:12→08:27)
[2016-11-14 06:15] LABS: MANUAL DIFF NEEDED? NO
[2016-11-14 06:18] LABS: BASO% 0.2 % (0.0-0.8); EOS# 0.25 X1000 (0.0-0.7); HEMATOCRIT 43.2 % (42.0-52.0); HEMOGLOBIN 14.6 g/dL (14.0-18.0); IMM GRAN# 0.07 X1000 (0.0-0.04); IMM GRAN% 0.6 % (0.0-0.5); LYMPH# 4.02 X1000 (1.2-3.4); LYMPH% 32.1 % (20.5-51.1); MCHC 33.8 g/dL (33-37); MCV 88.9 FL (81-99); MONO# 1.69 X1000 (0.11-0.59); MONO% 13.5 % (1.7-9.3); MPV 10.8 FL (7.4-10.4); NEUT% 51.6 % (42.2-75.2); PLT 262 X1000 (130-400); RBC 4.86 XMIL (4.7-6.1)
[2016-11-14] MEDS: CLINIMIX E 4.25%-5% SOLUTION 1,000 ML IV SCH (06:30)
[2016-11-14 11:49] VITALS: BP 106/70
--- NOTE | 2016-11-14 12:00 | PROGRESS NOTE ---
DATE: 11/14/2016 SUBJECTIVE: Feels well. He is tolerating a soft diet. No changes in his pain. No abdominal pain. OBJECTIVE: Vital Signs: No fevers. No tachycardia. Blood pressure 104/65. Abdomen: Soft, nontender, nondistended. He is in good spirits. Cardiovascular: Normal rate, regular rhythm. LABS: White count down to 12.5. ASSESSMENT AND PLAN: A 46-year-old male with perforated diverticulitis. He has resolved this with IV antibiotics currently. I would recommend transition to course of oral antibiotics. I will talk to Dr. Frye about this with either doing Augmentin and Flagyl, or a Cipro, Flagyl, but he has been on fluoroquinolones for quite some time and I think the Augmentin, Flagyl for the next 10 days would be a good option. I can see him back in the next 1 week and follow his course, ensure he is doing well and then he will need a colonoscopy in 6 weeks to ensure prior to planning elective descending colectomy. Otherwise will continue GI soft diet and activity as tolerated. cc: MD Jairo Rice MD
--- NOTE | 2016-11-15 06:43 | DISCHARGE SUMMARY ---
ADMISSION DATE: 11/09/2016 DISCHARGE DATE: 11/14/2016 PRIMARY CARE PHYSICIAN: Dr. Jairo Frye SURGEON: Dr. Shaun Hernandez HISTORY: The patient was admitted 11/09/2016 and is being discharged today. This is a 46-year- old, male well known to myself with history of perforated diverticulitis approximately 18 years ago, and noted to have persistent abdominal pain and CT-proven pneumoperitoneum and diverticular perforation in the left lower bowel. LABS AND IMAGING: The patient had an abdominal CT on 11/09/2016 that showed acute perforated descending diverticulitis with pneumoperitoneum. No abscess or free fluid. Mesenteric adenitis with mesenteritis, unchanged from prior study and a normal appendix. Repeat CT on 11/11/2016 showed slight increasing inflammation in his splenic flexure of the colon compatible with perforated splenic diverticulitis. Increasing patchy bibasilar atelectasis and trace left pleural effusion. PROBLEM LIST ON DISCHARGE: 1. Acute perforated descending diverticulitis. 2. Pneumoperitoneum. 3. Mesenteric adenitis. 4. Pleural effusion. 5. Leukocytosis. 6. Hyperglycemia. 7. Hypotension likely secondary to hypovolemia. LABS: Show WBC trending down from approximately 20,000 down to 12.51. On the day of discharge, neutrophils at 51.6. D-dimer 0.36. Chemistry pending. Microbiology urine culture no growth. HOSPITAL COURSE: Patient was managed with elective surgery per me and Dr. Hernandez. IV antibiotics were utilized as noted in the chart. The patient responded by daily improving, and on the day of discharge, has tolerated greater than 24 hours of p.o. intake via soft diet. Fevers have decreased and patient has responded well to current medication regimen, now utilizing tramadol and rare doses of hydromorphone. Patient be discharged home in stable condition with close followup per Surgery on approximately 10 additional days of antibiotics. We will allow patient to be evaluated by Surgery prior to discharge, but agree with the discharge and close followup within 7 days per my office. cc: Jairo Frye MD
== END 2016-11-14 12:46 | disposition home or self-care (01) ==
LOC: P.ED 12:44 → EDIPHOLD 12:44 → OBSVTOIN 16:52 → 4N 20:28
PROVIDERS: ADMIT Family Medicine; ATTEND Family Medicine

== ENCOUNTER 2017-01-12 07:00 | Inpatient (IN) ==
[2017-01-19] MEDS ORDERED: PEPCID ONE (07:10)
[2017-01-19] MEDS ORDERED: ENTEREG ONE (07:10)
[2017-01-19] MEDS ORDERED: REGLAN ONE (07:10)
[2017-01-19] MEDS ORDERED: LR 1,000 ML ONE ×3 (07:11→12:32)
[2017-01-19] MEDS ORDERED: INVANZ 1 GM/NS 1 GM/50 ML IVPB ONE (07:11)
[2017-01-19] MEDS ORDERED: SODIUM CHLORIDE 0.9% 10 ML ONE (07:21)
[2017-01-19] MEDS ORDERED: EXPAREL 1.3% ONE (07:21)
[2017-01-19] MEDS ORDERED: NAROPIN 0.5% ONE (07:21)
[2017-01-19] MEDS ORDERED: VERSED ONE ×2 (07:59)
[2017-01-19] MEDS ORDERED: SENSORCAINE 0.5%-EPI 1:200,000 ONE (08:02)
[2017-01-19] MEDS ORDERED: XYLOCAINE 1% ONE (08:02)
[2017-01-19] MEDS ORDERED: DIPRIVAN 1% ONE ×2 (08:15→08:22)
[2017-01-19] MEDS ORDERED: XYLOCAINE-MPF 2% ONE (08:16)
[2017-01-19] MEDS ORDERED: QUELICIN (DOSE) ONE (08:16)
[2017-01-19] MEDS ORDERED: NORCURON ONE ×2 (08:16→11:19)
[2017-01-19] MEDS ORDERED: XYLOCAINE 1%/EPI 1:100,000 ONE (08:28)
[2017-01-19] MEDS ORDERED: MARCAINE 0.25% PF ONE (08:28)
[2017-01-19] MEDS ORDERED: OFIRMEV 1000 MG/ISOTONIC SOLN 1,000 MG/100 ML BOTTLE ONE (09:49)
[2017-01-19 09:54] LABS: URINE MICRO REVIEW NEEDED? NO; URINE SOURCE CATH
[2017-01-19 10:02] LABS: BILIRUBIN URINE NEGATIVE (NEGATIVE); BLOOD URINE LARGE (NEGATIVE); COLOR ORANGE; GLUCOSE URINE NEGATIVE (NEGATIVE); LEUKOCYTES URINE NEGATIVE (NEGATIVE); NITRITE URINE NEGATIVE (NEGATIVE); PH URINE 5.5; PROTEIN URINE TRACE mg/dL (NEGATIVE); SP GRAVITY URINE 1.023; TURBIDITY URINE HAZY (CLEAR); UROBILINOGEN URINE NORMAL (NORMAL)
[2017-01-19 10:03] LABS: UR EPITHELIAL CELLS <10 /HPF (<10); URINE BACTERIA NEGATIVE /HPF; URINE RBC TNTC /HPF (<10); URINE WBC <10 /HPF (<10)
[2017-01-19] MEDS ORDERED: FENTANYL ONE (10:10)
[2017-01-19] MEDS ORDERED: ROBINUL ONE (11:07)
[2017-01-19] MEDS ORDERED: NEOSTIGMINE ONE (11:08)
[2017-01-19] MEDS ORDERED: ZOFRAN ONE (11:23)
--- NOTE | 2017-01-19 11:27 | EKG Report ---
Test Performed on : 01/19/2017 07:09:40 AM Test Reason : PREOP Blood Pressure : / mmHG Vent. Rate : 081 BPM Atrial Rate : 081 BPM P-R Int : 168 ms QRS Dur : 082 ms QT Int : 368 ms P-R-T Axes : 068 054 065 degrees QTc Int : 427 ms Normal sinus rhythm. Normal ECG No previous ECGs available Confirmed by Aidan Rivas DO ([id number]) on 01/19/2017 5:00:33 PM
[2017-01-19] MEDS: DILAUDID ONE ×2 (12:20→12:27)
[2017-01-19] MEDS ORDERED: ZOFRAN IV PRN (13:12)
[2017-01-19] MEDS: OFIRMEV 1000 MG/ISOTONIC SOLN 1,000 MG/100 ML BOTTLE IV SCH ×2 (13:40→20:22)
[2017-01-19] MEDS: LR 1,000 ML IV SCH (13:42)
[2017-01-19] MEDS: ULTRAM PO PRN ×2 (13:55→20:22)
[2017-01-19] MEDS: OXY IR PO PRN ×2 (17:15→20:23)
--- NOTE | 2017-01-19 17:49 | OPERATIVE NOTE ---
PROCEDURE DATE: 01/19/2017 PREOPERATIVE DIAGNOSIS: Recurrent descending colon diverticulitis. POSTOPERATIVE DIAGNOSIS: Recurrent descending colon diverticulitis. PROCEDURES PERFORMED: Laparoscopic hand-assisted descending colectomy. ASSISTANTS: Vel King MD was present for the majority of the case. He assisted with the colon resection and anastomosis, and firing of the EEA stapler and wound closure operative. OPERATIVE FINDINGS: There was a chronically inflamed thickened sigmoid colon with diverticula and acute inflammation at the level of the splenic flexure. There were 2 areas that were tattooed by Dr. Paez that were identified. The remaining colon and abdomen appeared normal with the exception of some diverticula in the right colon that were not inflamed. INDICATIONS: A 46-year-old male with multiple episodes of diverticulitis and perforations related to this. In the past, his most recent episode has failed to really resolve. Descending colectomy is indicated. He had a colonoscopy prior to this to confirm no neoplastic process. OPERATIVE NOTE: Risks, benefits, alternatives discussed with patient. He consented to the procedure. He is seen preoperatively and surgery to be performed was confirmed. He had a bowel prep for colonoscopy and was maintained on clear liquids and was given antibiotic prep. He was taken to the operating room, placed in supine position. General anesthesia induced. Preincisional antibiotics were administered. He was then placed in lithotomy. Burrell catheter was placed, and his abdomen was prepped with chlorhexidine solution and draped in the usual fashion after his hair was removed with clippers. He also had a TAP block preoperatively by Anesthesia. We made a 7.5 cm hand port starting from the umbilicus and extending inferiorly and entered the abdomen in a controlled fashion using a scalpel and electrocautery. There were no intra-abdominal adhesions really to the midline. We then placed a 10-mm trocar in the suprapubic location in an open fashion with our hand protecting the underlying viscera, insufflated the abdomen through this and placed a 5 mm trocar in the suprapubic location above the level of the bladder. Then using a LigaSure device, we placed the patient in [id number] and Trendelenburg position and immobilized the right colon along the white line of Toldt, protecting the retroperitoneal structures. We did identify the ureter and protect this. It was well away from our dissection on the left. We extended this dissection up to immobilize the entire splenic flexure around really to the middle colic vessels, taking the greater omentum off, entering the lesser sac along the way, widely mobilized the left colon. We then turned our attention distally, starting at the sigmoid colon. There was a thickened strictured area here that we mobilized distally until the coalescence of the tinea and the proximal rectum. After widely mobilizing all these structures, we felt we had adequate length. We desufflated the abdomen and brought the colon through the umbilical port, divided distally at healthy proximal rectum and using a LigaSure device, we took the mesentery of the colon, starting at the sigmoid vessels up to dividing the [place] with a Vicryl ligature. We did not divide this highly, but at the level of the colon as we did not suspect a neoplastic process, and really took this all way up into the left branch of the middle colic to provide wide mobility. The colon was well perfused. Dr. Paez's most proximal ink blot, we transected the colon here using a pursestring device, and a 28 EEA Sizer was placed. We cleaned up the proximal end removing any epiploic fat and there was no diverticula here. At this point, we ensured there was no twisting of the mesentery. It was well perfused with a palpable pulse and bleeding cut edge. Dr. King went below and passed a 28 mm EEA stapler up transanally to the proximal rectal staple line. He deployed the spike and we created an end-to- end staple anastomosis. Both donuts were intact. There is no tension on the anastomosis whatsoever. We then irrigated the pelvis, insufflated the rectum with a rigid proctoscopy and confirmed there was no leak after submerging the staple line. We were satisfied with this. Hemostasis was noted. We irrigated the abdomen, placed omentum over this anastomosis and under the wound and closed the 10 mm port with interrupted 0 Vicryl suture, and the midline was closed with a #1 PDS suture. The skin was closed with 4-0 subcuticular Monocryl. Please also note, we did add a 5 mm port for mobilization of the splenic flexure in the left lower quadrant while the abdomen was insufflated. We changed our gloves and instruments prior to wound closure to prevent wound infection and left the Dharmesh wound protector in place throughout. He tolerated the procedure well. Counts correct x2. No identified complications. He was transferred to PACU in good condition. I spoke with the family. cc: Lissa Hernandez MD MTDD
[2017-01-19] MEDS: PERIDEX MT SCH (20:22)
[2017-01-19] MEDS ORDERED: ENTEREG PO SCH (21:00)
[2017-01-20] MEDS: OXY IR PO PRN ×3 (00:29→07:06)
[2017-01-20] MEDS: LR 1,000 ML IV SCH ×2 (00:34→09:22)
[2017-01-20] MEDS: ULTRAM PO PRN ×2 (02:36→09:26)
[2017-01-20] MEDS: OFIRMEV 1000 MG/ISOTONIC SOLN 1,000 MG/100 ML BOTTLE IV SCH ×4 (03:59→23:00)
[2017-01-20 05:15] LABS: MANUAL DIFF NEEDED? NO
[2017-01-20 05:19] LABS: EOS# 0.01 X1000 (0.0-0.7); EOS% 0.1 % (0.0-10.0); HEMATOCRIT 40.6 % (42.0-52.0); IMM GRAN# 0.02 X1000 (0.0-0.04); IMM GRAN% 0.2 % (0.0-0.5); LYMPH# 2.94 X1000 (1.2-3.4); LYMPH% 22.5 % (20.5-51.1); MCH 29.9 PG (27-31); MCHC 34.5 g/dL (33-37); MCV 86.8 FL (81-99); MONO# 1.99 X1000 (0.11-0.59); MONO% 15.3 % (1.7-9.3); MPV 11.3 FL (7.4-10.4); NEUT% 61.9 % (42.2-75.2); PLT 249 X1000 (130-400); RBC 4.68 XMIL (4.7-6.1)
[2017-01-20 05:43] LABS: AGAP 13; BUN 9 mg/dL (8-22); CALCIUM 8.8 mg/dL (8.8-10.2); CHLORIDE 102 mmol/L (98-107); COSMO 279; POTASSIUM 4.1 mmol/L (3.5-5.1); SODIUM 140 mmol/L (136-145); TCO2 25 mmol/L (25-35)
[2017-01-20] MEDS: LOVENOX SUBQ SCH (06:31)
[2017-01-20] MEDS: DILAUDID ONE (08:24)
[2017-01-20] MEDS: ENTEREG PO SCH ×2 (09:27→21:35)
[2017-01-20] MEDS: MAG-OX PO SCH (09:27)
[2017-01-20] MEDS: PERIDEX MT SCH ×2 (09:27→21:35)
[2017-01-20] MEDS: NEXIUM PO SCH (09:27)
[2017-01-20] MEDS ORDERED: LR 1,000 ML IV SCH (10:54)
[2017-01-20] MEDS ORDERED: ULTRAM PO PRN (10:54)
[2017-01-20] MEDS: MOTRIN PO SCH ×2 (13:30→19:04)
--- NOTE | 2017-01-20 14:11 | PROGRESS NOTE ---
DATE: 01/20/2017 SUBJECTIVE: He feels well. Says he is passing gas. No nausea or vomiting. He is tolerating liquids. Pain is controllable with Ultram overnight and affirmative. OBJECTIVE: No fevers. No tachycardia. Blood pressure 104/67, oxygen saturation is 97%.General: He is alert, in no acute distress. Abdomen: Soft, appropriately tender. Incision is clean, dry, intact. Burrell catheter is out. LABS: White count is 13, hematocrit is 40, creatinine is 1.0, glucose 120. ASSESSMENT AND PLAN: This is a 46-year-old male status post left colectomy for severe diverticulitis laparoscopically. He is doing well. He has already had return of bowel function. He is tolerating clear liquids. The pain is controlled with Ultram alone. Continue. We will be taking his Burrell out this morning. He is on DVT and PPI for prophylaxis. We will continue the magnesium oxide, add Motrin today, and treat him per the ERAS protocol. I will give him a soft diet and I have encouraged him to go slowly with this. cc: Lissa Hernandez MD [facility]
[2017-01-21] MEDS: OFIRMEV 1000 MG/ISOTONIC SOLN 1,000 MG/100 ML BOTTLE IV SCH (06:01)
[2017-01-21] MEDS: LOVENOX SUBQ SCH (06:02)
[2017-01-21] MEDS: PERIDEX MT SCH ×2 (09:27→20:08)
[2017-01-21] MEDS: MAG-OX PO SCH (09:28)
[2017-01-21] MEDS: MOTRIN PO SCH ×3 (09:28→17:55)
[2017-01-21] MEDS: NEXIUM PO SCH (09:28)
[2017-01-21] MEDS: ENTEREG PO SCH ×2 (09:28→20:08)
--- NOTE | 2017-01-21 11:49 | PROGRESS NOTE ---
DATE: 01/21/2017 SUBJECTIVE: Mr. Giovanny Younger is now postop day 2 from a left hemicolectomy per Dr. Hernandez for diverticulitis. So far, postoperatively he is doing well. He has been ambulating. OBJECTIVE: Vital signs: His heart rate is 65, blood pressure 114/68, O2 saturation 96%. He is on no oxygen. He has no work of breathing. He is afebrile. He has had some flatus. He is on a regular diet and ate about 25% of it. His white blood cell count was 13 on 01/19/2017. PLAN: Will Hep-Lock his IV fluids so that he can move around easier. Will see how he tolerates his diet. His wound remains dressed. cc: MD Lissa Olguin MD
[2017-01-21] MEDS ORDERED: TYLENOL ARTHRITIS PO PRN (14:00)
[2017-01-22] MEDS: LOVENOX SUBQ SCH (05:22)
[2017-01-22 07:23] VITALS: BP 107/63
[2017-01-22] MEDS: PERIDEX MT SCH (07:59)
[2017-01-22] MEDS: MAG-OX PO SCH (08:00)
[2017-01-22] MEDS: ENTEREG PO SCH (08:00)
[2017-01-22] MEDS: MOTRIN PO SCH (08:00)
[2017-01-22] MEDS: NEXIUM PO SCH (08:00)
--- NOTE | 2017-01-22 19:14 | DISCHARGE SUMMARY ---
ADMISSION DATE: 01/19/2017 DISCHARGE DATE: 01/22/2017 ADMITTING DIAGNOSIS: Left colon and sigmoid colon diverticulitis. DISCHARGE DIAGNOSIS: Left colon and sigmoid colon diverticulitis. PRINCIPAL PROCEDURE: Laparoscopic hand assisted descending colectomy by Dr. Hernandez on 01/19/2017. DISCHARGE DIET: Regular. DISCHARGE DISPOSITION: He will return to our outpatient offices in 10-14 days for followup. DISCHARGE DISABILITY: Full. DISCHARGE MEDICATIONS: None. HOSPITAL COURSE: Mr. Giovanny Younger is a 46-year-old white male who has had a recurrent left-sided and sigmoid diverticulitis. He is a patient of Dr. Jairo Frye. He was admitted on the day of surgery, 01/19/2017, and underwent a left colon and sigmoid colon resection with an end-to-end stapled anastomosis essentially between the transverse colon and the proximal rectum. It was felt that the surgery went well. After surgery he went to the recovery room and then to the [address] [place] [id number] miranda. He was given liquids early. He did not require narcotics. He was ambulating on postop day 1. It was felt on postop day 3 that we could send him home under the care of his with followup in our outpatient offices. On the day of discharge his abdomen was soft. He had flatus. He was tolerating his diet and he was ambulating on his own in the room and in the lenz. On discharge his heart rate was 68, blood pressure 107/63, O2 saturation 97%. He was afebrile on no antibiotics. He knows to contact us with any increasing abdominal distention, pain, or fever. I gave him discharge instructions. cc: MD Lissa Olguin MD Micah A. Howard, MD
== END 2017-01-22 11:25 | disposition home or self-care (01) ==
LOC: SURHOLD 01-19 02:31 → 4N 01-19 12:07
PROVIDERS: ADMIT Surgery; ATTEND Surgery